=== PATIENT | female | born 1950 | race Caucasian/White ===

== ENCOUNTER 2020-09-21 10:45 | Day surgery (SDC) | payer MEDICARE, BC ==
[~2020-09-21 10:45] MED LIST: Dextrose 5%-Lactated Ringers 1,000 ML IV SCH
[2020-09-21] MEDS ORDERED: Propofol 200 MG/20 ML SDV ONE (12:14)
[2020-09-21] MEDS ORDERED: Midazolam 1 MG/ML 2 ML SDV ONE (12:14)
[2020-09-21] MEDS ORDERED: fentaNYL 100 MCG/2 ML SDV ONE (12:14)
--- NOTE | 2020-10-05 14:54 | OR ---
DATE OF PROCEDURE: 09/21/2020 SURGEON: Raul Sales MD PREOPERATIVE DIAGNOSIS: Indication for screening colonoscopy. POSTOPERATIVE DIAGNOSIS: Single small polyp of splenic flexure. OPERATIVE PROCEDURE: Flexible colonoscopy with polypectomy by snare technique. ANESTHESIA: IV sedation. INDICATION FOR PROCEDURE: The patient presents for a screening colonoscopy. Plan is to proceed with a colonoscopy with biopsies and/or polypectomy as indicated. Potential risks including bleeding and perforation were discussed and the patient wishes to proceed. DETAILS OF PROCEDURE: The patient was taken to the operating room and placed in a left lateral decubitus position. IV sedation was administered after which the initial digital rectal exam was performed and was unremarkable. The colonoscope was passed into the rectum with retroflexion revealing uncomplicated hemorrhoidal columns. The scope was eventually passed to the cecum. The prep was fairly good. Only a small amount of liquid stool was present. The patient had no diverticula or areas of colitis. A single polyp was identified in the splenic flexure, this being around 3 mm in size. This was excised by means of a cautery snare technique and sent for histologic evaluation. Otherwise, no additional abnormality was seen. The scope was withdrawn and the procedure then concluded. Assuming the polyp is adenomatous in nature, a followup colonoscopy should be done in 3 years. If it is not premalignant, a 5-year colonoscopy would be warranted. Raul Sales MD /[id number]
== END 2020-09-21 16:25 | disposition home or self-care (01) ==
LOC: JP.SDS 10:45
PROVIDERS: ATTEND Surgery
DX: Z12.11 Encounter for screening for malignant neoplasm of colon (principal); K63.5 Polyp of colon; K64.9 Unspecified hemorrhoids; I10 Essential (primary) hypertension; E78.5 Hyperlipidemia, unspecified
CPT/HCPCS: 45385; 88305; J2250; J2704; J3010; J7121

== ENCOUNTER 2022-07-19 15:38 | Emergency (ER) | payer MEDICARE, BC | END 2022-07-19 18:35 | disposition home or self-care (01) | LOC: JP.ED 15:38 | DX: S52.592A Other fractures of lower end of left radius, initial encounter for closed fracture (principal); E78.00 Pure hypercholesterolemia, unspecified; Z88.8 Allergy status to other drugs, medicaments and biological substances; Z79.899 Other long term (current) drug therapy; W00.9XXA Unspecified fall due to ice and snow, initial encounter | CPT/HCPCS: 73110-26-LT; 73110-LT; 73130-26-LT; 73130-LT; 99282; 99283 ==

== ENCOUNTER 2022-11-25 12:08 | Emergency (ER) | payer MEDICARE, BC | END 2022-11-25 13:19 | disposition home or self-care (01) | LOC: JP.ED 12:08 | DX: H10.021 Other mucopurulent conjunctivitis, right eye (principal); E78.00 Pure hypercholesterolemia, unspecified; Z88.8 Allergy status to other drugs, medicaments and biological substances; Z79.899 Other long term (current) drug therapy | CPT/HCPCS: 99282 ==